=== PATIENT | female | born 2000 | race Caucasian/White ===

== ENCOUNTER 2019-03-16 14:55 | Emergency (ER) | payer MEDICAID ==
[~2019-03-16] VITALS: Ht 167.6 cm; Wt 50.9 kg
[2019-03-16] MEDS ORDERED: NO HOME MEDS (15:18)
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
[2019-03-16 16:05] LABS: BASOPHILS # (AUTO) 0.1 X10'3 (0-0.2); BASOPHILS % (AUTO) 0.6 % (0-1); EOSINOPHILS # (AUTO) 0.1 X10'3 (0-0.9); EOSINOPHILS % (AUTO) 0.7 % (0-6); HEMATOCRIT 41.9 % (35.0-45.0); LYMPHOCYTES % (AUTO) 12.4 % (21-51); MEAN CORPUSCULAR HEMOGLOBIN 31.1 PG (27.0-31.0); MEAN CORPUSCULAR HGB CONC 33.4 g/dL (33.0-36.5); MEAN CORPUSCULAR VOLUME 93.1 FL (78-98); MONOCYTES # (AUTO) 0.4 X10'3 (0-0.9); MONOCYTES % (AUTO) 5.2 % (2-12); NEUTROPHILS # (AUTO) 6.8 X10'3 (1.8-7.7); NEUTROPHILS % (AUTO) 81.1 % (42-75); PLATELET COUNT 290 X10'3 (140-440); RED BLOOD COUNT 4.49 X10'6 (4.20-5.60); RED CELL DISTRIBUTION WIDTH 12.8 % (11.5-14.5); WHITE BLOOD COUNT 8.4 X10'3 (4.5-11.0)
[2019-03-16 16:19] LABS: ALANINE AMINOTRANSFERASE 28 U/L (12-78); ALBUMIN 4.3 G/DL (3.4-5.0); ALKALINE PHOSPHATASE 71 IU/L (20-180); ANION GAP 5 (8-16); ASPARTATE AMINO TRANSFERASE 20 U/L (10-37); BILIRUBIN,TOTAL 0.2 MG/DL (0.1-1.0); BLOOD UREA NITROGEN 11 MG/DL (7-18); BUN/CREATININE RATIO 12.8 (6.6-38.0); CALCIUM 9.2 MG/DL (8.5-10.1); CHLORIDE 107 MMOL/L (99-107); CREATININE 0.86 MG/DL (0.40-0.90); GLUCOSE 105 MG/DL (70-104); POTASSIUM 4.2 MMOL/L (3.5-5.1); SODIUM 141 MMOL/L (135-145); TOTAL CARBON DIOXIDE 28.6 MMOL/L (24-32); TOTAL PROTEIN 8.4 G/DL (6.4-8.2); eGFR 84 ML/MIN
[2019-03-16 16:28] LABS: ETHANOL < 0.010 GM/DL (0.0-0.010)
[2019-03-16 16:44] LABS: URINE HCG NEGATIVE (NEG)
[2019-03-16 16:47] LABS: CLARITY,URINE CLOUDY (Clear); COLOR,URINE YELLOW (Yellow); GLUCOSE, URINE NEGATIVE (Neg); KETONES,URINE NEGATIVE (Neg); LEUKOCYTE ESTERASE ,URINE NEGATIVE (Neg); NITRITES, URINE NEGATIVE (Neg); OCCULT BLOOD,URINE LARGE (Neg); PH,URINE 7.5 (4.8-8.0); PROTEIN,URINE TRACE mg/dl (Neg); UROBILINOGEN,URINE 0.2 E.U/dL (0.2-1.0)
[2019-03-16 16:55] LABS: URINE AMPHETAMINE SCREEN POSITIVE (Neg); URINE BARBITUATE SCREEN NEGATIVE (Neg); URINE BENZODIAZEPINES SCREEN NEGATIVE (Neg); URINE CANNABINOID SCREEN POSITIVE (Neg); URINE COCAINE SCREEN NEGATIVE (Neg); URINE METHADONE SCREEN NEGATIVE (Neg); URINE OPIATE SCREEN NEGATIVE (Neg); URINE PHENCYCLIDINE SCREEN NEGATIVE (Neg)
[2019-03-16 17:00] LABS: UA COLLECTION TYPE CLN CATCH MIDSTREAM
[2019-03-16 17:04] LABS: RBC,URINE 50-100 /HPF (0-2); WBC,URINE 0-4 /HPF (0-4)
[2019-03-16 17:05] LABS: BACTERIA,URINE 1+ /HPF (Neg)
[2019-03-16 17:06] LABS: SQUAMOUS EPITHELIAL CELL,UR MODERATE /LPF (FEW)
--- NOTE | 2019-03-16 17:32 | NUR ---
Medically cleared by , packet faxed to [facility]
[2019-03-16 18:10] VITALS: BP 118/71
--- NOTE | 2019-03-16 19:06 | NUR ---
Pt is calm and in her bed with her mother and brother at bedside. Family are interacting appropriately with Pt.
--- NOTE | 2019-03-16 19:58 | NUR ---
[facility] INTERVIEW IN PROGRESS WITH LEO. MOTHER AND BROTHER REQUESTED TO SEPT OUT FOR INTERVIEW INITIALLY.
--- NOTE | 2019-03-16 20:43 | NUR ---
Updated Face Sheet faxed to [facility]. Confirmed receipt of FaceSheet with Nava @ [facility] office.
--- NOTE | 2019-03-16 21:26 | NUR ---
LE: [facility] TALKED W/PT AND THEN WITH MOTHER AND BROTHER AND SHE REPORTS SHE WILL RELEASE THE HOLD AND DC PT TONIGHT. PT GIVEN INFORMATION FOR MENTAL HEALTH SERVICES AND CALLED TO MAKE APPT FROM HER BEDSIDE TO HAVE VISIT TOMORROW. PT COOPERATIVE AND GRATEFUL FOR THIS DECISION.
== END 2019-03-16 21:29 | disposition home or self-care (01) ==
LOC: ER 14:56
DX: F15.90 Other stimulant use, unspecified, uncomplicated (principal)
CPT/HCPCS: 36415; 80053; 80305; 80320; 81001; 81025; 84443; 85025; 99283; 99285